=== PATIENT | female | born 1995 | race African-American/Black ===

== ENCOUNTER 2018-08-15 08:33 | Emergency (ER) | payer SELFPAY ==
[2018-08-15 09:22] LABS: Urine Blood NEGATIVE (NEG); Urine Glucose NEGATIVE (NEG); Urine Protein TRACE (NEG); Urine pH 6.5 (5.0-7.0)
[2018-08-15 09:28] LABS: Absolute Lymphocytes (CBC) 0.7 K/uL (0.7-4.9); Absolute Monocytes 0.5 K/uL (0.1-1.3); Basophils % 0.2 % (0-1.3); Eosinophils % 0.4 % (0-4.4); Hematocrit 37.5 % (36.0-45.0); Lymphocytes % 16.1 % (15.3-44.8); MCH 32.2 pg (27.0-35.0); MCV 93.6 fL (80-100); MPV 8.3 fL (7.6-11.3); Monocytes % 10.9 % (3.3-12.3); RBC Red Blood Cell Count 4.01 M/uL (3.86-4.86)
[2018-08-15] MEDS ORDERED: ONDANSETRON 4 MG/2 ML VIAL ONE (09:33)
[2018-08-15 09:43] LABS: ALT/SGPT 26 U/L (12-78); AST/SGOT 25 U/L (15-37); Albumin 3.3 g/dL (3.4-5.0); Alkaline Phosphatase 65 U/L (45-117); BUN Blood Urea Nitrogen 11 mg/dL (7-18); Bicarbonate 27 mmol/L (21-32); Bilirubin Direct 0.1 mg/dL (0-0.2); Bilirubin Total 0.3 mg/dL (0.2-1.0); Glucose Level 76 mg/dL (74-106); Lipase 56 U/L (73-393); Potassium 3.4 mmol/L (3.5-5.1); Protein, Total 7.2 g/dL (6.4-8.2); Sodium Level 138 mmol/L (136-145)
[2018-08-15 09:49] LABS: Urine Bacteria 20-50 /HPF (<20); Urine Culture Reflex Order REFLEXED; Urine Mucus MOD /HPF (NONE SEEN); Urine RBC <5 /HPF (NONE SEEN)
--- NOTE | 2018-08-15 12:11 | RAD REPORT ---
EXAM DESCRIPTION: CT - Abdomen Pelvis W Contrast - 08/15/2018 11:41 am CLINICAL HISTORY: Abdominal pain. Periumbilical pain COMPARISON: None. TECHNIQUE: Computed axial tomography of the abdomen and pelvis was obtained. 100 cc Isovue-300 is ad ministered intravenously. Oral contrast was given. All CT scans are performed using dose optimization technique as appropriate and may include automated exposure control or mA/KV adjustment according to patient size. FINDINGS: The liver, spleen, pancreas, adrenals and kidneys appear unremarkable. The appendix is normal caliber. There is no evidence of diverticulitis A 5 centimeter right ovarian cyst without significant free fluid IMPRESSION: A 5 centimeter right ovarian cystic mass may represent a hemorrhagic cyst. Significant f ree fluid is not noted. A followup ultrasound in a couple months is recommended to assess stability/r esolution
[2018-08-15] MEDS ORDERED: CEFTRIAXONE/SWI 1gm 1 GM/10 ML SYR ONE (12:49)
--- NOTE | 2018-08-15 14:18 | RAD REPORT ---
EXAM DESCRIPTION: US - Transvaginal Study Probe - 08/15/2018 1:56 pm CLINICAL HISTORY: Pelvic pain COMPARISON: August 15 CT FINDINGS: The uterus measures 7 x 3 x 4cm. A fibroid is not seen. Endometrial stripe within normal l imits 5 centimeter echogenic structure within the right adnexal. Blood flow is seen within the periphery. L eft ovary normal in size and texture. No significant free fluid is seen. IMPRESSION: 5 centimeter echogenic structure within the right adnexa consistent with a hemorrhagic c yst. Followup ultrasound in a couple months is recommended to assess stability/resolution
--- NOTE | 2018-08-15 14:21 | ER ---
Nurse's Notes [facility] Name: Radha Pool Age: 22 yrs Sex: Female : 1995 Arrival Date: 08/15/2018 Time: 08:37 Bed 14 Private MD: None, None Diagnosis: Unspecified ovarian cysts-Right;Urinary tract infection, site not specified Presentation: 08/15 08:44 Presenting complaint: Patient states: lower abd pain, chills and fever that began ss yesterday. Transition of care: patient was not received from another setting of care. Onset of symptoms was August 14, 2018. Risk Assessment: Do you want to hurt yourself or someone else? Patient reports no desire to harm self or others. Initial Sepsis Screen:. Care prior to arrival: None. 08:44 Method Of Arrival: Ambulatory ss 08:44 Acuity: GRIS 3 ss 08:45 Initial Sepsis Screen: Does the patient meet any 2 criteria? No. Patient's initial rb1 sepsis screen is negative. Does the patient have a suspected source of infection? No. Patient's initial sepsis screen is negative. 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 - Social history:: Smoking status: Patient/guardian denies using tobacco. - Ebola Screening: : Patient denies exposure to infectious person Patient denies travel to an Ebola-affected area in the 21 days before illness onset. Screenin:45 Abuse screen: Denies threats or abuse. Nutritional screening: pt. has trouble keeping rb1 anything down without vomiting.. Tuberculosis screening: No symptoms or risk factors identified. Fall Risk None identified. Assessment: 08:45 General: Appears in no apparent distress. comfortable, Behavior is calm, cooperative, rb1 Reports chills for fever for. Pain: Complains of pain in right lower quadrant and left lower quadrant Pain radiates to low back Pain currently is 8 out of 10 on a pain scale. Neuro: Level of Consciousness is awake, alert, obeys commands, Oriented to person, place, time, situation. Cardiovascular: Capillary refill < 3 seconds is brisk in bilateral fingers. Respiratory: Airway is patent Respiratory effort is even, unlabored, Respiratory pattern is regular, symmetrical. GI: Bowel sounds present X 4 quads. Abd is soft Abdomen is tender to palpation in right lower quadrant and left lower quadrant Reports nausea, vomiting. : No signs and/or symptoms were reported regarding the genitourinary system. Derm: Skin is dry, Skin is normal, Skin temperature is warm. 09:45 Reassessment: Patient appears in no apparent distress at this time. No changes from rb1 previously documented assessment. Friend at bedside. 10:45 Reassessment: Patient appears in no apparent distress at this time. Patient and/or rb1 family updated on plan of care and expected duration. Pain level reassessed. Patient is alert, oriented x 3, equal unlabored respirations, skin warm/dry/pink. 11:27 Reassessment: Pt. went to CT. rb1 11:50 Reassessment: Patient appears in no apparent distress at this time. Patient and/or rb1 family updated on plan of care and expected duration. Pain level reassessed. Patient is alert, oriented x 3, equal unlabored respirations, skin warm/dry/pink. 12:49 Reassessment: Patient appears in no apparent distress at this time. No changes from rb1 previously documented assessment. 13:48 Reassessment: Patient appears in no apparent distress at this time. Patient and/or rb1 family updated on plan of care and expected duration. Pain level reassessed. Patient is alert, oriented x 3, equal unlabored respirations, skin warm/dry/pink. 14:48 Reassessment: Patient appears in no apparent distress at this time. pt. is resting with rb1 eyes closed, respirations even, unlabored. Bed in low, locked position. Call light within reach. Vital Signs: 08:45 Resp 15; Weight 102.51 kg (M); Height 5 ft. 7 in. (170.18 cm); Pain 6/10; ss 09:45 BP 117 / 69; Pulse 95; Resp 17; Pulse Ox 100% on R/A; rb1 10:45 BP 118 / 72; Pulse 84; Resp 16; Pulse Ox 100% on R/A; rb1 11:45 BP 122 / 66; Pulse 80; Resp 17; Pulse Ox 100% on R/A; rb1 12:45 BP 123 / 82; Pulse 80; Resp 19; Pulse Ox 100% on R/A; rb1 13:45 BP 123 / 83; Pulse 79; Resp 18; Pulse Ox 99% on R/A; rb1 14:45 BP 120 / 85; Pulse 82; Resp 17; Temp 98.7(O); Pulse Ox 100% on R/A; Pain 3/10; rb1 15:20 BP 118 / 87; Pulse 79; Resp 16; Pulse Ox 99% on R/A; rb1 08:45 Body Mass Index 35.40 (102.51 kg, 170.18 cm) ED Course: 08:37 Patient arrived in ED. sb2 08:38 None, None is Private Physician. sb2 08:40 Rambo Jimenes PA is PHCP. cp 08:40 Boone Ervin MD is Attending Physician. cp 08:43 Sun Feng, MERVIN is Primary Nurse. rb1 08:45 Triage completed. ss 08:45 Arm band placed on right wrist. ss 08:45 Patient has correct armband on for positive identification. Placed in gown. Bed in low rb1 position. Call light in reach. Side rails up X 1. Pulse ox on. NIBP on. 09:10 Inserted saline lock: 22 gauge in right antecubital area, using aseptic technique. rb1 Blood collected. 11:42 CT completed. Patient moved to CT via wheelchair. Patient moved back from CT. bq 11:49 CT Abd/Pelvis - W/Contrast: give oral contrast In Process Unspecified. EDMS 13:54 Ultrasound completed. Patient tolerated well. sg3 13:54 US Transvaginal Study (Probe) In Process Unspecified. EDMS 14:19 Curt Acosta MD is Referral Physician. cp 15:24 No provider procedures requiring assistance completed. IV discontinued, intact, rb1 bleeding controlled, No redness/swelling at site. Pressure dressing applied. Administered Medications: 09:28 Drug: Zofran 4 mg Route: IVP; Site: right antecubital; rb1 09:42 Follow up: Response: No adverse reaction; Nausea is decreased rb1 12:47 Drug: Rocephin 1 grams Route: IV; Rate: bolus; Site: right antecubital; rb1 13:15 Follow up: Response: No adverse reaction; IV Status: Completed infusion rb1 Outcome: 14:20 Discharge ordered by . cp 15:24 Patient left the ED. rb1 15:24 Discharged to home ambulatory. rb1 15:24 Condition: stable 15:24 Discharge instructions given to patient, Instructed on discharge instructions, follow up and referral plans. medication usage, Demonstrated understanding of instructions, follow-up care, medications, Prescriptions given X 3. Signatures: Dispatcher [employer] EDMS Zahra Haas Shelby, RN RN ss Rambo Jimenes PA PA cp Barber, Rebecca, RN RN rb1 Sarah Cheek 3 Shruthi Hodge sb2
--- NOTE | 2018-08-15 14:21 | EDPHYS ---
Physician Documentation [facility] Name: Radha Pool Age: 22 yrs Sex: Female : 1995 Arrival Date: 08/15/2018 Time: 08:37 Bed 14 Private MD: None, None ED Physician Boone Ervin HPI: 08/15 08:58 This 22 yrs old Black Female presents to ER via Ambulatory with complaints of Abdominal cp Pain, Nausea/Vomiting, Headache. 08:58 The patient presents with abdominal pain in the lower abdomen. cp 08:58 Onset: The symptoms/episode began/occurred yesterday. Associated signs and symptoms: cp Pertinent positives: nausea and vomiting, fever, headache, Pertinent negatives: chest pain, constipation, diarrhea, dysuria, palpitations, shortness of breath, vomiting blood. The symptoms are described as sharp. 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 - Social history:: Smoking status: Patient/guardian denies using tobacco. - Ebola Screening: : Patient denies exposure to infectious person Patient denies travel to an Ebola-affected area in the 21 days before illness onset. ROS: 09:05 Constitutional: Positive for chills, Negative for fever, poor PO intake. cp 09:05 Eyes: Negative for injury, pain, redness, and discharge. cp 09:05 ENT: Negative for drainage from ear(s), ear pain, sore throat, difficulty swallowing, difficulty handling secretions. 09:05 Cardiovascular: Negative for chest pain, edema, palpitations. 09:05 Respiratory: Negative for cough, shortness of breath, wheezing. 09:05 Abdomen/GI: Positive for abdominal pain, nausea and vomiting, Negative for diarrhea, constipation, anorexia, black/tarry stool, rectal bleeding. 09:05 Back: Negative for radiated pain. 09:05 : Negative for urinary symptoms, difficulty urinating, vaginal bleeding, vaginal discharge. 09:05 Skin: Negative for cellulitis, rash. 09:05 Neuro: Positive for headache, Negative for altered mental status, syncope, weakness. 09:05 All other systems are negative. Exam: 09:12 Constitutional: The patient appears in no acute distress, alert, awake, non-toxic, well cp developed, well nourished. 09:12 Head/Face: Normocephalic, atraumatic. Eyes: Pupils equal round and reactive to light, cp extra-ocular motions intact. Lids and lashes normal. Conjunctiva and sclera are non-icteric and not injected. Cornea within normal limits. Periorbital areas with no swelling, redness, or edema. ENT: Nares patent. No nasal discharge, no septal abnormalities noted. Tympanic membranes are normal and external auditory canals are clear. Oropharynx with no redness, swelling, or masses, exudates, or evidence of obstruction, uvula midline. Mucous membranes moist. Neck: Trachea midline, no thyromegaly or masses palpated, and no cervical lymphadenopathy. Supple, full range of motion without nuchal rigidity, or vertebral point tenderness. No Meningismus. Chest/axilla: Normal chest wall appearance and motion. Nontender with no deformity. No lesions are appreciated. 09:12 Cardiovascular: Rate: normal, Rhythm: regular, Edema: is not appreciated, JVD: is not appreciated. 09:12 Respiratory: the patient does not display signs of respiratory distress, Respirations: normal, no use of accessory muscles, no retractions, no splinting, no tachypnea, labored breathing, is not present, Breath sounds: are clear throughout, no decreased breath sounds, no stridor, no wheezing. 09:12 Abdomen/GI: Inspection: abdomen appears normal, Bowel sounds: active, all quadrants, Palpation: soft, in all quadrants, mild abdominal tenderness, in the right lower quadrant, rebound tenderness, is not appreciated, involuntary guarding, is not appreciated. 09:12 Back: CVA tenderness, is absent. 09:12 Skin: cellulitis, is not appreciated, no rash present. 09:12 Neuro: Orientation: to person, place \T\ time. Mentation: is normal, Cerebellar function: is grossly normal, Motor: is normal, Sensation: is normal. Vital Signs: 08:45 Resp 15; Weight 102.51 kg (M); Height 5 ft. 7 in. (170.18 cm); Pain 6/10; ss 09:45 BP 117 / 69; Pulse 95; Resp 17; Pulse Ox 100% on R/A; rb1 10:45 BP 118 / 72; Pulse 84; Resp 16; Pulse Ox 100% on R/A; rb1 11:45 BP 122 / 66; Pulse 80; Resp 17; Pulse Ox 100% on R/A; rb1 12:45 BP 123 / 82; Pulse 80; Resp 19; Pulse Ox 100% on R/A; rb1 13:45 BP 123 / 83; Pulse 79; Resp 18; Pulse Ox 99% on R/A; rb1 14:45 BP 120 / 85; Pulse 82; Resp 17; Temp 98.7(O); Pulse Ox 100% on R/A; Pain 3/10; rb1 15:20 BP 118 / 87; Pulse 79; Resp 16; Pulse Ox 99% on R/A; rb1 08:45 Body Mass Index 35.40 (102.51 kg, 170.18 cm) ss MDM: 08:40 Patient medically screened. 14:20 Data reviewed: vital signs, nurses notes, lab test result(s), radiologic studies, CT cp scan, ultrasound. 14:20 Counseling: I had a detailed discussion with the patient and/or guardian regarding: the cp historical points, exam findings, and any diagnostic results supporting the discharge/admit diagnosis, lab results, radiology results, the need for outpatient follow up, an OB/Gyne specialist, to return to the emergency department if symptoms worsen or persist or if there are any questions or concerns that arise at home. Response to treatment: the patient's symptoms have markedly improved after treatment, and as a result, I will discharge patient. Special discussion: Based on the patient's Hx, exam, and Dx evaluation, there is no indication for emergent surgery or inpatient Tx. It is understood by the patient/guardian that if the Sx's persist or worsen they need to return immediately for re-evaluation. 08/15 08:57 Order name: Basic Metabolic Panel; Complete Time: 10:00 cp 08/15 10:00 Interpretation: Normal except: K 3.4; CL 108; CA 8.2. 08/15 08:57 Order name: CBC with Diff; Complete Time: 10:00 cp 08/15 10:00 Interpretation: Normal except: WBC 4.1. 08/15 08:57 Order name: Creatinine for Radiology; Complete Time: 10:00 08/15 08:57 Order name: Hepatic Function; Complete Time: 10:00 08/15 10:01 Interpretation: Normal except: ALB 3.3; GLOB 3.9; A/G 0.8. 08/15 08:57 Order name: Lipase; Complete Time: 10:00 cp 08/15 08:57 Order name: Influenza Screen (a \T\ B); Complete Time: 12:15 cp 08/15 12:15 Interpretation: Reviewed. 08/15 09:03 Order name: Urine Microscopic Only; Complete Time: 10:00 08/15 10:01 Interpretation: Normal except: UWBC 20-50; UBACT 20-50; SQEPI 10-20. 08/15 09:11 Order name: Urine Dipstick--Ancillary (enter results); Complete Time: 10:00 lt1 08/15 09:12 Order name: Urine --Ancillary (enter results) lt 08/15 09:16 Order name: CT Abd/Pelvis - W/Contrast: give oral contrast; Complete Time: 12:15 08/15 12:15 Interpretation: Report reviewed. 08/15 09:50 Order name: Urine Culture EDVA 08/15 12:16 Order name: US Transvaginal Study (Probe); Complete Time: 14:19 cp 08/15 08:57 Order name: IV Saline Lock; Complete Time: 09:28 cp 08/15 08:57 Order name: Labs collected and sent; Complete Time: 09:28 cp 08/15 08:57 Order name: Urine Dipstick-Ancillary (obtain specimen); Complete Time: 09:28 cp 08/15 08:57 Order name: Urine Test (obtain specimen); Complete Time: 09:28 cp Administered Medications: 09:28 Drug: Zofran 4 mg Route: IVP; Site: right antecubital; rb1 09:42 Follow up: Response: No adverse reaction; Nausea is decreased rb1 12:47 Drug: Rocephin 1 grams Route: IV; Rate: bolus; Site: right antecubital; rb1 13:15 Follow up: Response: No adverse reaction; IV Status: Completed infusion rb1 Disposition: 08/16 07:45 Co-signature as Attending Physician, Boone Ervin MD. Disposition: 08/15/18 14:20 Discharged to Home. Impression: Unspecified ovarian cysts - Right, Urinary tract infection, site not specified. - Condition is Stable. - Discharge Instructions: Ovarian Cyst, Urinary Tract Infection, Adult. - Prescriptions for Zofran 4 mg Oral Tablet - take 1 tablet by ORAL route every 12 hours As needed; 20 tablet. Bactrim DS 800- 160 mg Oral Tablet - take 1 tablet by ORAL route every 12 hours for 7 days; 14 tablet. Anaprox DS 550 mg Oral Tablet - take 1 tablet by ORAL route every 12 hours As needed; 20 tablet. - Medication Reconciliation Form, Thank You Letter, Antibiotic Education, Prescription Opioid Use, Work release form form. - Follow up: Curt Acosta MD; When: 1 week; Reason: right ovarian cyst. - Problem is new. - Symptoms have improved. Signatures: Dispatcher [employer] EDMS Mariajose Koroma RN RN ss Rambo Jimenes PA PA Sun Limon RN RN rb1 Boone Ervin MD MD gs Corrections: (The following items were deleted from the chart) 08/15 10:00 10:00 Normal except: K 3.4; CL 108. cp cp 15:24 14:20 08/15/2018 14:20 Discharged to Home. Impression: Unspecified ovarian cysts - rb1 Right; Urinary tract infection, site not specified. Condition is Stable. Forms are Medication Reconciliation Form, Thank You Letter, Antibiotic Education, Prescription Opioid Use. Follow up: Curt Acosta; When: 1 week; Reason: right ovarian cyst. Problem is new. Symptoms have improved. cp
== END 2018-08-15 15:24 | disposition home or self-care (01) ==
LOC: ER 08:33
DX: N83.201 Unspecified ovarian cyst, right side (principal); N39.0 Urinary tract infection, site not specified
CPT/HCPCS: 36415; 74177; 76830; 80048; 80076; 81003; 81015; 81025; 83690; 85025; 87086; 87088; 87804; 96365; 96375; 99284; J0696; J2405; Q9967

== ENCOUNTER 2021-02-05 16:19 | Emergency (ER) | payer SELFPAY ==
[2021-02-05 17:16] LABS: Urine Blood Negative (Negative); Urine Glucose Negative (Negative); Urine Protein Trace (Negative); Urine Specific Gravity 1.025 (1.005-1.030); Urine pH 6.5 (5.0-7.0)
[2021-02-05 17:39] LABS: Urine Specific Gravity/Preg 1.025 (1.005-1.030)
--- NOTE | 2021-02-05 18:51 | RAD REPORT ---
EXAM DESCRIPTION: US - Transvaginal OB - 02/05/2021 6:16 pm CLINICAL HISTORY: Abd cramping, ;Vaginal bleeding COMPARISON: Extremity [facility]ous [facility] dated 11/24/2016No comparisons FINDINGS: A single small gestational sac is seen within the uterus. The shape of the sac is within n ormal limits for gestational age and yields a 5 week 2 day estimated gestational age. No embryo detec marco antonio within the sac. The placenta is not yet developed due to early gestational age. The right ovary appears normal with normal Doppler blood flow. The left ovary is obscured by bowel ga s. Both adnexal regions are within normal limits. IMPRESSION: Small gestational sac is seen within the endometrium. This is most compatible with an ea rly IUP. No embryo is yet detected. Recommend follow-up serial HCG levels and follow-up pelvic sonogram in 10-12 days.
[2021-02-05 18:58] LABS: Absolute Lymphocytes (CBC) 1.8 K/uL (0.7-4.9); Basophils % 0.8 % (0-1.3); Hematocrit 33.9 % (36.0-45.0); Lymphocytes % 26.3 % (15.3-44.8); MPV 8.3 fL (7.6-11.3); RBC Red Blood Cell Count 3.67 M/uL (3.86-4.86)
[2021-02-05 19:02] LABS: BUN Blood Urea Nitrogen 12 mg/dL (7-18); Bicarbonate 24 mmol/L (21-32); Glucose Level 81 mg/dL (74-106); Potassium 3.6 mmol/L (3.5-5.1); Sodium Level 137 mmol/L (136-145)
--- NOTE | 2021-02-05 19:31 | ER ---
Nurse's Notes [facility] Name: Radha Pool Age: 25 yrs Sex: Female : 1995 Arrival Date: 02/05/2021 Time: 16:20 Bed 26 Private MD: Diagnosis: Threatened Presentation: 02/05 16:57 Chief complaint: Patient states: "I had a test that tested positive jd3 yesterday. I started bleeding today that was heavy and now it has decreased here this afternoon. pain has got worse though.". Coronavirus screen: At this time, the client does not indicate any symptoms associated with coronavirus-19. Ebola Screen: Patient negative for fever greater than or equal to 101.5 degrees Fahrenheit, and additional compatible Ebola Virus Disease symptoms. Initial Sepsis Screen: Does the patient meet any 2 criteria? No. Patient's initial sepsis screen is negative. Does the patient have a suspected source of infection? No. Patient's initial sepsis screen is negative. Risk Assessment: Do you want to hurt yourself or someone else? Patient reports no desire to harm self or others. Onset of symptoms was February 04, 2021. 16:57 Method Of Arrival: Ambulatory j 16:57 Acuity: GRIS 3 jd3 Triage Assessment: 19:02 General: Appears in no apparent distress. Behavior is calm, cooperative. Pain: Denies ak2 pain. GI: No deficits noted. 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 - Social history:: Smoking status: Patient denies any tobacco usage or history of. Screenin:02 Abuse screen: Denies threats or abuse. Denies injuries from another. Nutritional ak2 screening: No deficits noted. Tuberculosis screening: No symptoms or risk factors identified. Fall Risk None identified. Vital Signs: 17:00 BP 138 / 80; Pulse 97; Resp 16 S; Temp 97.8(TE); Pulse Ox 99% on R/A; Weight 104.33 kg jd3 (R); Height 5 ft. 7 in. (170.18 cm) (R); Pain 8/10; 19:54 BP 126 / 75; Pulse 75; Resp 16; Pulse Ox 98% on R/A; ak2 17:00 Body Mass Index 36.02 (104.33 kg, 170.18 cm) j ED Course: 16:20 Patient arrived in ED. am2 16:40 [facility] kb 16:40 Wyatt Oneil MD is Attending Physician. kb 16:59 Triage completed. jd3 17:02 Arm band placed on. jd3 18:16 US Transvaginal Ob In Process Unspecified. EDMS 19:02 Patient has correct armband on for positive identification. Bed in low position. Call ak2 light in reach. 19:02 No provider procedures requiring assistance completed. ak2 19:03 Ricardo Rubio is Primary Nurse. ak2 Administered Medications: No medications were administered Outcome: 19:30 Discharge ordered by MD. kb 19:54 Discharged to home ambulatory. ak2 19:54 Condition: good 19:54 Discharge instructions given to patient. 19:55 Patient left the ED. ak2 Signatures: Dispatcher [employer] EDME Nurys Aj FNP-C FNP-Ckb Moreno, Amanda am2 Yoel Llanos RN RN Ricardo Wilcox ak2
--- NOTE | 2021-02-05 19:32 | EDPHYS ---
Physician Documentation [facility] Name: Radha Pool Age: 25 yrs Sex: Female : 1995 Arrival Date: 02/05/2021 Time: 16:20 Bed 26 Private MD: ED Physician Wyatt Oneil HPI: 02/05 19:53 This 25 yrs old Black Female presents to ER via Ambulatory with complaints of Abdominal kb Pain - low, Low Back Pain. 19:53 The patient presents to the emergency department with abdominal pain, of the left lower kb quadrant, that started yesterday, described as constant. course: care: none, Leakage of Fluid: none appreciated, Ultrasound: the patient has not had an ultrasound, Risk/complications: no obvious risks or complications are appreciated. Previous pregnancies: the patient has never been . Associated signs and symptoms: Pertinent positives: abdominal pain, vaginal bleeding. The patient has not experienced similar symptoms in the past. The patient has not recently seen a physician. Pt reports LLQ pain that started yesterday. States she had some bleeding yesterday, resolved today. Had a positive test yesterday. . [employer]: 17:00 LMP 12/31/2020 jd3 19:53 1, 0, Living 0, LMP 12/31/2020 kb Historical: - Allergies: 17:00 amoxicillin; jd3 - Home Meds: 17:00 None [Active]; jd3 - PMHx: 17:00 Asthma; Migraines; jd3 - PSHx: 17:00 None; jd3 - Immunization history:: Adult Immunizations up to date. - Social history:: Smoking status: Patient denies any tobacco usage or history of. ROS: 19:52 Constitutional: Negative for fever, chills, and weight loss. kb 19:52 Abdomen/GI: Positive for abdominal pain, Negative for nausea, vomiting, and diarrhea. 19:52 : Positive for vaginal bleeding. 19:52 All other systems are negative. Exam: 19:52 Constitutional: This is a well developed, well nourished patient who is awake, alert, kb and in no acute distress. Head/Face: Normocephalic, atraumatic. ENT: Moist Mucous membranes Cardiovascular: Regular rate and rhythm with a normal S1 and S2. No gallops, murmurs, or rubs. No pulse deficits. Respiratory: Respirations even and unlabored. No increased work of breathing, no retractions or nasal flaring. Skin: Warm, dry with normal turgor. Normal color. MS/ Extremity: Pulses equal, no cyanosis. Neurovascular intact. Full, normal range of motion. Neuro: Awake and alert, GCS 15, oriented to person, place, time, and situation. Moves all extremities. Normal gait. Psych: Awake, alert, with orientation to person, place and time. Behavior, mood, and affect are within normal limits. 19:52 Abdomen/GI: Inspection: abdomen appears normal, Bowel sounds: normal, Palpation: soft, in all quadrants, moderate abdominal tenderness, in the left lower quadrant. Vital Signs: 17:00 BP 138 / 80; Pulse 97; Resp 16 S; Temp 97.8(TE); Pulse Ox 99% on R/A; Weight 104.33 kg jd3 (R); Height 5 ft. 7 in. (170.18 cm) (R); Pain 8/10; 19:54 BP 126 / 75; Pulse 75; Resp 16; Pulse Ox 98% on R/A; ak2 17:00 Body Mass Index 36.02 (104.33 kg, 170.18 cm) jd3 MDM: 17:10 Patient medically screened. kb 19:51 Data reviewed: vital signs, nurses notes. Data interpreted: Pulse oximetry: on room air kb is 99 %. Interpretation: normal. Counseling: I had a detailed discussion with the patient and/or guardian regarding: the historical points, exam findings, and any diagnostic results supporting the discharge/admit diagnosis, lab results, radiology results, the need for outpatient follow up, an OB/Gyne specialist, to return to the emergency department if symptoms worsen or persist or if there are any questions or concerns that arise at home. 02/05 17:16 Order name: Urine Dipstick-Ancillary; Complete Time: 17:23 EDMS 02/05 17:25 Order name: Urine --Ancillary (enter results); Complete Time: 17:43 bd 02/05 18:23 Order name: Abo/rh Typing kb 02/05 18:23 Order name: Basic Metabolic Panel 02/05 18:23 Order name: CBC with Diff 02/05 18:24 Order name: ABO/RH typing; Complete Time: 19:29 EDMS 02/05 17:10 Order name: Urine Test (obtain specimen) 02/05 17:10 Order name: Urine Dipstick-Ancillary (obtain specimen) 02/05 17:15 Order name: US Transvaginal Ob; Complete Time: 18:53 02/05 18:23 Order name: IV Saline Lock 02/05 18:23 Order name: Labs collected and sent 02/05 18:24 Order name: Basic Metabolic Panel; Complete Time: 19:29 [facility] 02/05 18:24 Order name: CBC with Automated Diff; Complete Time: 19:29 [facility] 02/05 19:30 Order name: HCG-Quantitative 02/05 18:23 Order name: NPO Administered Medications: No medications were administered Disposition: 02/06 07:05 Co-signature as Attending Physician, Wyatt Oneil MD. rn Disposition: 02/05/21 19:30 Discharged to Home. Impression: Threatened . - Condition is Stable. - Discharge Instructions: Threatened Miscarriage, [id number], Vaginal Bleeding During , First Trimester, [id number]. - Medication Reconciliation Form, Thank You Letter, Antibiotic Education, Prescription Opioid Use form. - Follow up: Emergency Department; When: As needed; Reason: Worsening of condition. Follow up: Private Physician; When: 2 - 3 days; Reason: Recheck today's complaints, Continuance of care, Re-evaluation by your physician. Signatures: Dispatcher [employer] [facility] Nurys Aj, MANAGER TECHNICAL TRAINING-C MANAGER TECHNICAL TRAINING-Ckb Wyatt Oneil MD MD rn Davies, Jonathon, RN RN jd3 [place]ol[place], Anthony ak2 Corrections: (The following items were deleted from the chart) 02/05 19:55 19:30 02/05/2021 19:30 Discharged to Home. Impression: Threatened . Condition ak2 is Stable. Forms are Medication Reconciliation Form, Thank You Letter, Antibiotic Education, Prescription Opioid Use. Follow up: Emergency Department; When: As needed; Reason: Worsening of condition. Follow up: Private Physician; When: 2 - 3 days; Reason: Recheck today's complaints, Continuance of care, Re-evaluation by your physician. kb
[2021-02-05 20:16] VITALS: TEMP 97.8
[2021-02-05 20:17] VITALS: BP 126/75; O2SAT 98
== END 2021-02-05 19:55 | disposition home or self-care (01) ==
LOC: ER 16:19
DX: O20.0 Threatened abortion (principal); O99.511 Diseases of the respiratory system complicating pregnancy, first trimester; J45.909 Unspecified asthma, uncomplicated; Z3A.01 Less than 8 weeks gestation of pregnancy
CPT/HCPCS: 36415; 76817; 80048; 81003; 81025; 84702; 85025; 86900; 86901; 99283

== ENCOUNTER 2022-08-28 10:14 | Emergency (ER) | payer OTHER, SELFPAY ==
--- OUTSIDE RECORDS SUMMARY | 2022-08-28 10:19 | XMS REPORT | Continuity of Care Document ---
:1995 Author Organization [facility] t Address [address] [place] [address] Care Team Providers Name Role Phone Asked, No Pcp Primary Care Physician Unavailable DEIRDRE MOHAMUD Attending Clinician Unavailable UGHANZE, COMFORT Attending Clinician Unavailable UGHANZE, COMFORT NNEZE Attending Clinician Unavailable [place] JEFFRIES, Pedro Attending Clinician Unavailable [place], External Attending Clinician Unavailable Payers Payer Name Policy Type Policy Number Effective Date Expiration Date [facility] MEDICAID STAR [id number] 2021 00:00:00 Problems Condition Condition Condition Status Onset Resolution Last Treating Co mments Source Name Details Category Date Date Treatment Clinician Date ABCC8-rela ABCC8-rela Disease Active [facility] marco antonio bernard 03-08 Health 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, ia, autosomal autosomal recessive recessive Allergies, Adverse Reactions, Alerts Allergy Allergy Status Severity Reaction(s) Onset Inactive Treating Comm ents Source Name Type Date Date Clinician Amoxicil Propensi Active Itching [facility] efren ty to 03-02 [facility] adverse 00:00: reaction 00 s Social History Social Habit Start Date Stop Date Quantity Comments Source ASSERTION 2021-01-14 [facility] 00:00:00 Exposure to Not sure [facility] SARS-CoV-2 (event) History SDOH [facility] Drinks History SDOH [facility] Tobacco use and 2021-03-02 2021-03-02 Smokeless tobacco [facility] exposure 00:00:00 00:00:00 non-user Alcohol intake 2019-01-09 2019-01-09 Current [facility] 00:00:00 00:00:00 non-drinker of Hospital alcohol (finding) History [facility] 2019-01-09 2019-01-09 1 [facility] Frequency 00:00:00 00:00:00 Hospita l Sex Assigned At [birth year] [facility] 00:[facility]:00 [facility] Smoking Status Start Date Stop Date Source Never smoker [facility] Medications Ordered Filled Start Stop Current Ordering Indication Dosage Frequency Signature Comments Components Source Medication Medication Date Date Medication? Clinician (SIG) Name Name ferrous 2020-09- No [id number] 325mg QD Take 1 U T sulfate 0-29 10-30 tablet Health (FerrouSul) 00:00: 04:59 (325 mg 325 (65 Fe) 00 :00 total) by MG tablet mouth 1 (one) time each day with breakfast. ferrous 2020-09 No [id number] 325mg QD Take 1 U T sulfate 0-29 10-30 tablet Health (FerrouSul) 00:00: 04:59 (325 mg 325 (65 Fe) 00 :00 total) by MG tablet mouth 1 (one) time each day with breakfast. butalbital- 2020-09 Yes [facility] acetaminoph 0-14 Health en-caffeine 00:00: (Fioricet) 00 50-300-40 MG capsule butalbital2020-09 Yes [facility] acetaminoph 0-14 Health en-caffeine 00:00: (Fioricet) 00 50-300-40 MG capsule butalbital- 2020-09 Yes [facility] acetaminoph 0-14 Health en-caffeine 00:00: (Fioricet) 00 50-300-40 MG capsule nitrofurant 2020- No [id number] 100mg Q.5D Take 1 UT oin, 9 10-08 capsule Health macrocrysta 00:00: 04:59 (100 mg l-monohydra 00 :00 total) by te, mouth 2 (Macrobid) (two) 100 MG times a capsule day for 7 days. nitrofurant 2020- No [id number] 100mg Q.5D Take 1 [facility] oin, -06-08 capsule Health macrocrysta 00:00: 04:59 (100 mg l-monohydra 00 :00 total) by te, mouth 2 (Macrobid) (two) 100 MG times a capsule day for 7 days. ondansetron 2020- No [id number] 4mg Take 1 UT (Zofran) 4 05-03 tablet (4 Hea lth MG tablet 00:00: 04:59 mg total) 00 :00 by mouth every 8 (eight) hours if needed for nausea or vomiting for up to 13 days. ondansetron 2020- No [id number] 4mg Take 1 UT (Zofran) 4 05-03 tablet (4 Hea lth MG tablet 00:00: 04:59 mg total) 00 :00 by mouth every 8 (eight) hours if needed for nausea or vomiting for up to 13 days. Doxylamine- Yes [id number] Take 2 [facility] Pyridoxine 7-02 tabs at Health 10-10 MG 00:00: night, one tablet 00 in the delayed-rel morning ease and one in the afternoon as needed for nausea Doxylamine- Yes [id number] Take 2 [facility] Pyridoxine 7-02 tabs at Health 10-10 MG 00:00: night, one tablet 00 in the delayed-rel morning ease and one in the afternoon as needed for nausea 2021- No [id number] 1{tbl} QD Take 1 UT Vit-FePoly- 7-03-03 tablet by Ted alth FA-DHA 00:00: 04:59 mouth 1 (Select-OB+ 00 :00 (one) time DHA) 29-1 & each day. 250 MG misc 2021- No [id number] 1{tbl} QD Take 1 [facility] Vit-FePoly- 7-02 03-03 tablet by Ted alth FA-DHA 00:00: 04:59 mouth 1 (Select-OB+ 00 :00 (one) time DHA) 29-1 & each day. 250 MG misc 2021- No [id number] 1{tbl} QD Take 1 UT Vit-FePoly- 7-02 07-03 tablet by He alth FA-DHA 00:00: 04:59 mouth 1 (Select-OB+ 00 :00 (one) time DHA) 29-1 & each day. 250 MG misc 2021- No [id number] 1{tbl} QD Take 1 UT Vit-FePoly- 7-02 07-03 tablet by He alth FA-DHA 00:00: 04:59 mouth 1 (Select-OB+ 00 :00 (one) time DHA) 29-1 & each day. 250 MG misc 2021- No [id number] 1{tbl} QD Take 1 UT Vit-FePoly- 7-02 07-03 tablet by He alth FA-DHA 00:00: 04:59 mouth 1 (Select-OB+ 00 :00 (one) time DHA) 29-1 & each day. 250 MG misc 2021- No [id number] 1{tbl} QD Take 1 UT Vit-FePoly- 7-02 07-03 tablet by He alth FA-DHA 00:00: 04:59 mouth 1 (Select-OB+ 00 :00 (one) time DHA) 29-1 & each day. 250 MG misc 2021- No [id number] 1{tbl} QD Take 1 UT Vit-FePoly- 7-02 07-03 tablet by He alth FA-DHA 00:00: 04:59 mouth 1 (Select-OB+ 00 :00 (one) time DHA) 29-1 & each day. 250 MG misc 2021- No [id number] 1{tbl} QD Take 1 UT Vit-FePoly- 7-02 07-03 tablet by He alth FA-DHA 00:00: 04:59 mouth 1 (Select-OB+ 00 :00 (one) time DHA) 29-1 & each day. 250 MG misc 2021- No [id number] 1{tbl} QD Take 1 UT Vit-FePoly- 7-02 07-03 tablet by He alth FA-DHA 00:00: 04:59 mouth 1 (Select-OB+ 00 :00 (one) time DHA) 29-1 & each day. 250 MG misc 2021- No [id number] 1{tbl} QD Take 1 UT Vit-FePoly- 7- 07-03 tablet by He alth FA-DHA 00:00: 04:59 mouth 1 (Select-OB+ 00 :00 (one) time DHA) 29-1 & each day. 250 MG misc 2021- No [id number] 1{tbl} QD Take 1 UT Vit-FePoly- 7- 07-03 tablet by He alth FA-DHA 00:00: 04:59 mouth 1 (Select-OB+ 00 :00 (one) time DHA) 29-1 & each day. 250 MG misc 2021- No [id number] 1{tbl} QD Take 1 UT Vit-FePoly- 7-02 07-03 tablet by He alth FA-DHA 00:00: 04:59 mouth 1 (Select-OB+ 00 :00 (one) time DHA) 29-1 & each day. 250 MG misc 2021- No [id number] 1{tbl} QD Take 1 UT Vit-FePoly- 7-02 07-03 tablet by He alth FA-DHA 00:00: 04:59 mouth 1 (Select-OB+ 00 :00 (one) time DHA) 29-1 & each day. 250 MG misc Doxylamine- 2020- No [id number] Take 2 [facility] Pyridoxine 03-02 08-05 tabs at [facility]alt [facility] 10-10 MG 00:00: 00:00 night, one tablet 00 :00 in the delayed-rel morning ease and one in the afternoon as needed for nausea No known No No known Metho di medications 5-[address] 01[facility]: [facility] l No known No [facility] Immunizations Ordered Immunization Filled Immunization Date Status Commen ts Source Name Name Tdap 2021-07-17 [facility] 00:00:00 Tdap 2021-07-17 [facility] 00:00:00 Tdap 2014-03-18 [facility]pleted [facility] 00:00:00 Tdap 2014-03-18 [facility]pleted [facility] 00:00:00 Tdap 2014-03-18 [facility]pleted [facility] 00:00:00 Tdap 2014-03-18 [facility]pleted [facility] 00:00:00 Tdap 2014-03-18 Completed [facility] 00:00:00 Tdap 2014-03-18 Completed [facility] 00:00:00 Tdap 2014-03-18 [facility]pleted [facility] 00:00:00 Tdap 2014-03-18 Completed [facility] 00:00:00 Tdap 2014-03-18 [facility]pleted [facility] 00:00:00 Tdap 2014-03-18 [facility]pleted [facility] 00:00:00 Tdap 2014-03-18 [facility]pleted [facility] 00:00:00 Tdap 2014-03-18 [facility]pleted [facility] 00:00:00 Tdap 2014-03-18 [facility]pleted [facility] 00:00:00 Hep B, Adolescent or 1998-03-21 [facility] 00:[facility]:00 MMR 1998-03-21 [facility]pleted [facility] 00:00:00 OPV 1998-03-21 [facility]pleted [facility] 00:00:00 DTaP, Unspecified 1998-03-21 [facility]pleted [facility] 00:[facility] Hep B, Adolescent or 1998-03-21 [facility] 00:00:00 MMR 1998-03-21 [facility]pleted [facility] 00:00:00 OPV 1998-03-21 [facility] 00:00:00 DTaP, Unspecified 1998-03-21 [facility]pleted [facility] 00:[facility]:00 Hep B, Adolescent or 1998-03-21 [facility] 00:00:00 MMR 1998-03-21 [facility]pleted [facility] 00:00:00 OPV 1998-03-21 [facility] 00:00:00 DTaP, Unspecified 1998-03-21 [facility]pleted [facility] 00:00:00 Hep B, Adolescent or 1998-03-21 [facility]pleted [facility] 00:00:00 MMR 1998-03-21 [facility] 00:00:00 OPV 1998-03-21 [facility] 00:00:00 DTaP, Unspecified 1998-03-21 [facility]pleted [facility] 00:00:00 Hep B, Adolescent or 1998-03-21 [facility] 00:00:00 MMR 1998-03-21 [facility] 00:00:00 OPV 1998-03-21 [facility] 00:00:00 DTaP, Unspecified 1998-03-21 [facility]pleted [facility] 00:00:00 Hep B, Adolescent or 1998-03-21 [facility] 00:00:00 MMR 1998-03-21 [facility] 00:00:00 OPV 1998-03-21 [facility] 00:00:00 DTaP, Unspecified 1998-03-21 [facility]pleted [facility] 00:00:00 Hep B, Adolescent or 1998-03-21 [facility] 00:00:00 MMR 1998-03-21 [facility] 00:00:00 OPV 1998-03-21 [facility] 00:00:00 DTaP, Unspecified 1998-03-21 [facility] 00:00:00 DTaP, Unspecified 1998-03-21 [facility] 00:[facility]:00 Hep B, Adolescent or 1998-03-21 [facility] 00:00:00 MMR 1998-03-21 [facility] 00:00:00 OPV 1998-03-21 [facility] 00:00:00 DTaP, Unspecified 1998-03-21 [facility]pleted [facility] 00:00:00 Hep B, Adolescent or 1998-03-21 [facility] 00:00:00 MMR 1998-03-21 [facility] 00:00:00 Hep B, Adolescent or 1998-03-21 [facility] 00:00:00 OPV 1998-03-21 [facility] 00:00:00 MMR 1998-03-21 [facility]pleted [facility] 00:00:00 OPV 1998-03-21 [facility]pleted [facility] 00:00:00 DTaP, Unspecified 1998-03-21 [facility] 00:00:00 Hep B, Adolescent or 1998-03-21 [facility] 00:00:00 MMR 1998-03-21 [facility] 00:00:00 OPV 1998-03-21 [facility] 00:00:00 DTaP, Unspecified 1998-03-21 [facility] 00:00:00 Hep B, Adolescent or 1998-03-21 [facility] 00:00:00 MMR 1998-03-21 [facility] 00:00:00 OPV 1998-03-21 [facility] 00:00:00 DTaP, Unspecified 1998-03-21 [facility] 00:00:00 DTaP, Unspecified 1998-03-21 [facility] 00:00:00 Hep B, Adolescent or 1998-03-21 [facility] 00:00:00 MMR 1998-03-21 [facility] 00:00:00 OPV 1998-03-21 [facility] 00:00:00 Hep B, Adolescent or 1996-11-30 [facility] 00:00:00 OPV 1996-11-30 [facility] 00:00:00 DTP / HiB 1996-11-30 [facility]pleted [facility] 00:00:00 Hep B, Adolescent or 1996-11-30 [facility] 00:00:00 OPV 1996-11-30 [facility] 00:00:00 DTP / HiB 1996-11-30 [facility]pleted [facility] 00:00:00 Hep B, Adolescent or 1996-11-30 [facility] 00:00:00 OPV 1996-11-30 [facility]pleted [facility] 00:00:00 DTP / HiB 1996-11-30 [facility]pleted [facility] 00:00:00 Hep B, Adolescent or 1996-11-30 [facility] 00:00:00 OPV 1996-11-30 [facility] 00:00:00 DTP / HiB 1996-11-30 [facility]pleted [facility] 00:00:00 Hep B, Adolescent or 1996-11-30 [facility] 00:00:00 OPV 1996-11-30 [facility] 00:00:00 DTP / HiB 1996-11-30 [facility]pleted [facility] 00:00:00 Hep B, Adolescent or 1996-11-30 [facility] 00:00:00 OPV 1996-11-30 [facility] 00:00:00 DTP / HiB 1996-11-30 [facility]pleted [facility] 00:00:00 Hep B, Adolescent or 1996-11-30 [facility] 00:00:00 OPV 1996-11-30 [facility] 00:00:00 DTP / HiB 1996-11-30 [facility]pleted [facility] 00:00:00 Hep B, Adolescent or 1996-11-30 [facility] 00:00:00 OPV 1996-11-30 [facility] 00[facility]00:00 DTP / HiB 1996-11-30 [facility]pleted [facility] 00:00:00 DTP / HiB 1996-11-30 [facility]pleted [facility] 00:00:00 Hep B, Adolescent or 1996-11-30 [facility] 00:00:00 OPV 1996-11-30 [facility] 00:00:00 Hep B, Adolescent or 1996-11-30 [facility] 00:00:00 OPV 1996-11-30 [facility] 00:00:00 DTP / HiB 1996-11-30 [facility]pleted [facility] 00:00:00 Hep B, Adolescent or 1996-11-30 [facility] 00:00:00 OPV 1996-11-30 [facility] 00:00:00 DTP / HiB 1996-11-30 [facility]pleted [facility] 00:00:00 Hep B, Adolescent or 1996-11-30 [facility] 00:00:00 OPV 1996-11-30 [facility] 00:00:00 DTP / HiB 1996-11-30 [facility]pleted [facility] 00:00:00 DTP / HiB 1996-11-30 [facility]pleted [facility] 00:00:00 Hep B, Adolescent or 1996-11-30 [facility] 00:00:00 OPV 1996-11-30 [facility] 00:00:00 DTP / HiB 1995-07-03 [facility]pleted [facility] 00:00:00 Hep B, Adolescent or 1995-07-03 [facility] 00:00:00 OPV 1995-07-03 [facility] 00:00:00 DTP / HiB 1995-07-03 [facility]pleted [facility] 00:00:00 Hep B, Adolescent or 1995-07-03 [facility] 00:00:00 OPV 1995-07-03 [facility] 00:00:00 DTP / HiB 1995-07-03 [facility]pleted [facility] 00:00:00 Hep B, Adolescent or 1995-07-03 [facility] 00:00:00 OPV 1995-07-03 [facility] 00:00:00 DTP / HiB 1995-07-03 [facility]pleted [facility] 00:00:00 Hep B, Adolescent or 1995-07-03 [facility] 00:00:00 OPV 1995-07-03 [facility] 00:00:00 DTP / HiB 1995-07-03 [facility]pleted [facility] 00:00:00 Hep B, Adolescent or 1995-07-03 [facility] 00:00:00 OPV 1995-07-03 [facility] 00:00:00 DTP / HiB 1995-07-03 [facility]pleted [facility] 00:00:00 Hep B, Adolescent or 1995-07-03 [facility] 00:00:00 OPV 1995-07-03 [facility] 00:00:00 DTP / HiB 1995-07-03 [facility]pleted [facility] 00:00:00 Hep B, Adolescent or 1995-07-03 [facility] 00:00:00 OPV 1995-07-03 [facility] 00:00:00 DTP / HiB 1995-07-03 [facility]pleted [facility] 00:00:00 Hep B, Adolescent or 1995-07-03 [facility] 00:00:00 OPV 1995-07-03 [facility] 00[facility]00:00 DTP / HiB 1995-07-03 [facility]pleted [facility] 00:00:00 DTP / HiB 1995-07-03 [facility]pleted [facility] 00:00:00 Hep B, Adolescent or 1995-07-03 [facility] 00:00:00 OPV 1995-07-03 [facility]pleted [facility] 00:00:00 Hep B, Adolescent or 1995-07-03 [facility] 00:00:00 OPV 1995-07-03 [facility] 00:00:00 DTP / HiB 1995-07-03 [facility]pleted [facility] 00:00:00 Hep B, Adolescent or 1995-07-03 [facility] 00:00:00 OPV 1995-07-03 [facility] 00:00:00 DTP / HiB 1995-07-03 [facility]pleted [facility] 00:00:00 Hep B, Adolescent or 1995-07-03 [facility] 00:00:00 OPV 1995-07-03 [facility] 00:00:00 DTP / HiB 1995-07-03 [facility]pleted [facility] 00:00:00 Hep B, Adolescent or 1995-07-03 [facility] 00:00:00 OPV 1995-07-03 [facility] 00:00:00 MMR 1995-05-13 Completed [facility] 00:00:00 OPV 1995-05-13 [facility]pleted [facility] 00:00:00 DTP / HiB 1995-05-13 [facility]pleted [facility] 00:00:00 MMR 1995-05-13 [facility]pleted [facility] 00:00:00 OPV 1995-05-13 [facility]pleted [facility] 00:00:00 DTP / HiB 1995-05-13 [facility]pleted [facility] 00:00:00 MMR 1995-05-13 [facility]pleted [facility] 00:00:00 OPV 1995-05-13 [facility]pleted [facility] 00:00:00 DTP / HiB 1995-05-13 [facility]pleted [facility] 00:00:00 MMR 1995-05-13 [facility]pleted [facility] 00:00:00 OPV 1995-05-13 [facility]pleted [facility] 00:00:00 DTP / HiB 1995-05-13 [facility]pleted [facility] 00:00:00 MMR 1995-05-13 [facility]pleted [facility] 00:00:00 OPV 1995-05-13 [facility]pleted [facility] 00:00:00 DTP / HiB 1995-05-13 [facility]pleted [facility] 00:00:00 MMR 1995-05-13 Completed [facility] 00:00:00 OPV 1995-05-13 [facility]pleted [facility] 00:00:00 DTP / HiB 1995-05-13 [facility]pleted [facility] 00:00:00 MMR 1995-05-13 [facility]pleted [facility] 00:00:00 OPV 1995-05-13 [facility]pleted [facility] 00:00:00 DTP / HiB 1995-05-13 [facility]pleted [facility] 00:00:00 MMR 1995-05-13 [facility]pleted [facility] 00:00:00 DTP / HiB 1995-05-13 [facility]pleted [facility] 00:00:00 OPV 1995-05-13 [facility]pleted [facility] 00:00:00 DTP / HiB 1995-05-13 [facility]pleted [facility] 00:00:00 MMR 1995-05-13 [facility]pleted [facility] 00:00:00 OPV 1995-05-13 [facility]pleted [facility] 00:00:00 MMR 1995-05-13 [facility]pleted [facility] 00:00:00 OPV 1995-05-13 [facility]pleted [facility] 00:00:00 DTP / HiB 1995-05-13 [facility]pleted [facility] 00:00:00 MMR 1995-05-13 [facility]pleted [facility] 00:00:00 OPV 1995-05-13 [facility]pleted [facility] 00:00:00 DTP / HiB 1995-05-13 [facility]pleted [facility] 00:00:00 MMR 1995-05-13 [facility]pleted [facility] 00:00:00 OPV 1995-05-13 [facility]pleted [facility] 00:00:00 DTP / HiB 1995-05-13 [facility]pleted [facility] 00:00:00 DTP / HiB 1995-05-13 [facility]pleted [facility] 00:00:00 MMR 1995-05-13 [facility]pleted [facility] 00:00:00 OPV 1995-05-13 [facility]pleted [facility] 00:00:00 Vital Signs Vital Name Observation Time Observation Value Comments Source Systolic blood pressure 2021-08-17 15:32:00 111 mm[Hg] [facility] Diastolic blood pressure 2021-08-17 15:32:00 78 mm[Hg] [facility] Heart rate 2021-08-17 15:32:00 85 /min [facility] Body temperature 2021-08-17 15:32:00 36.39 [facility] weight 2021-08-17 15:32:00 103.874 kg [facility] BMI 2021-08-17 15:32:00 36.96 kg/m2 [facility] Systolic blood pressure 2021-07-17 20:32:00 107 mm[Hg] [facility] Diastolic blood pressure 2021-07-17 20:32:00 70 mm[Hg] [facility] Heart rate 2021-07-17 20:32:00 96 /min [facility] Body weight 2021-07-17 20:32:00 102.513 kg [facility] BMI 2021-07-17 20:32:00 36.48 kg/m2 [facility] Systolic blood pressure 2021-06-28 13:37:00 116 mm[Hg] [facility] Diastolic blood pressure 2021-06-28 13:37:00 81 mm[Hg] [facility] Heart rate 2021-06-28 13:37:00 94 /min [facility] Body temperature 2021-06-28 13:37:00 36.39 [facility] weight 2021-06-28 13:37:00 102.655 kg [facility] BMI 2021-06-28 13:37:00 36.53 kg/m2 [facility] Systolic blood pressure 2021-05-31 15:53:00 119 mm[Hg] [facility] Diastolic blood pressure 2021-05-31 15:53:00 81 mm[Hg] [facility] Heart rate 2021-05-31 15:53:00 90 /min [facility] Body temperature 2021-05-31 15:53:00 36.67 [facility] weight 2021-05-31 15:53:00 101.209 kg [facility] BMI 2021-05-31 15:53:00 36.01 kg/m2 [facility] Systolic blood pressure 2021-05-03 15:10:00 112 mm[Hg] [facility] Diastolic blood pressure 2021-05-03 15:10:00 77 mm[Hg] [facility] Heart rate 2021-05-03 15:10:00 88 /min [facility] Body temperature 2021-05-03 15:10:00 36.67 [facility] weight 2021-05-03 15:10:00 102.059 kg [facility] BMI 2021-05-03 15:10:00 36.32 kg/m2 [facility] Systolic blood pressure 2021-04-05 14:57:00 116 mm[Hg] [facility] Diastolic blood pressure 2021-04-05 14:57:00 75 mm[Hg] [facility] Heart rate 2021-04-05 14:57:00 85 /min [facility] Body temperature 2021-04-05 14:57:00 36.61 Phu[facility] weight 2021-04-05 14:57:00 102.967 kg [facility] BMI 2021-04-05 14:57:00 36.64 kg/m2 [facility] Systolic blood pressure 2021-03-02 19:41:00 123 mm[Hg] [facility] Diastolic blood pressure 2021-03-02 19:41:00 82 mm[Hg] [facility] Heart rate 2021-03-02 19:41:00 94 /min [facility] Body temperature 2021-03-02 19:41:00 36.56 [facility] height 2021-03-02 19:41:00 167.6 cm [facility] Body weight 2021-03-02 19:41:00 102.513 kg [facility] BMI 2021-03-02 19:41:00 36.48 kg/m2 [facility] Procedures Procedure Date / Time Performed Performing Clinician Sourc e POCT URINALYSIS DIPSTICK 2021-05-31 16:27:00 Alisha Worley [facility] OB DETAIL ANATOMY 2021-05-29 19:22:29 System, Provider Not In [facility] OB DETAIL ANATOMY 2021-05-29 19:22:29 System, Provider Not In [facility] Plan of Care Planned Activity Planned Date Details Comments Source Future Scheduled 2022-08-25 COVID-[address] [facility] Test 10:49:16 (#1) [code = COVID-19 VACCINE (#1)] Future Scheduled 2022-08-25 [facility] Test 10:49:16 malignant neoplasm of cervix (procedure) [code = 516309625] Future Scheduled 2022-08-25 [facility] 10:49:16 [code = INFLUENZA VACCINE] Future Scheduled [facility] [code = INFLUENZA VACCINE] Future Scheduled COVID-[address] [facility] Test (1) [code = COVID-19 VACCINE (1)] Future Scheduled [facility] screening (procedure) [code = 811886461] Future Scheduled [facility] Test malignant neoplasm of cervix (procedure) [code = 035002898] Encounters Start End Encounter Admission Attending Care Care Encounter Source Date/Time Date/Time Type Type Clinicians Facility Department ID 2021-07-17 Outpatient MOHAMUD, [facility] [id number] [place] 15:06:48 DE[facility] Health 2021-07-16 Outpatient UGHANZE, [facility] [id number] [place] 09:35:47 [facility] 2021-08-17 2021-08-17 Routine UGHANZE, [facility] [id number] [place] 09:15:00 09:30:00 [facility] [id number] H ealth [facility] 1 [id number] [id number] 2021-07-17 2021-07-17 Routine Ughanze, [facility]TP [facility] [id number] [place] 13:57:20 15:06:00 [facility] [id number] H ealth [place] 1 [id number] [id number] 2021-06-28 2021-06-28 Routine UGHANZE, [facility] [id number] [place] 08:32:49 08:47:49 [facility] [place] [id number] Health MULTI 9.2.7.2.686 SPECIALTY [id number] CLINIC 7 2021-05-29 2021-06-27 Outpatient EDGARDO [facility] 9600 14:09:00 23:59:[address] [facility] 2021-06-14 2021-06-14 Telephone Pedro Heard [facility] 6410 1.2. 840.114 [id number] [place] 00:00:00 00:00:00 Pedro Heard [id number]. 58 Health 9.2.7.2.686 [id number] 2021-05-31 2021-05-31 Routine Laurent [facility] 1.2.840.114 [id number] [place] 10:51:24 11:24:56 [facility] SE MED [id number] H ealth [place] 1 [id number] [id number] 2021-05-29 2021-05-29 Office [facility], EXT [facility] 1.2.840.114 [id number] [place] 14:08:15 14:53:15 Visit External LOCATION [id number] Health 9.2.7.2.686 [id number] 2021-05-29 2021-05-29 Office [facility], EXT [facility] 1.2.840.114 [id number] [place] 14:08:15 14:53:15 Visit External LOCATION [id number] Health 9.2.7.2.686 [id number] 2021-05-03 2021-05-03 Routine Laurent, [facility] 1.2.840.114 [id number] [place] 10:04:57 10:30:13 [facility] SE [facility] [id number] H ealth [place] 1 9.2.7.2.686 [id number] 2021-04-05 2021-04-05 Initial Laurent, UTP [facility] [id number] [place] 09:23:37 10:55:36 [facility] [id number] H ealth [place] 1 9.2.7.2.686 [id number] 2021-03-02 2021-03-02 Office FRANCESCA Mancilla [facility] [id number] [place] 14:13:55 15:21:41 Visit [facility] MED [id number] Ted WARD 1 9.2.7.2.686 [id number] Results Test Description Test Time Test Comments Results Result Comments Source POCT urinalysis dipstick manually resulted 2021-05-31 16:27: 00 Test Item Value Reference Range Interpretation Comme nts Color, UA (test code = 1076) Yellow Clarity, UA (test code = Clear 1841477) Glucose, UA (test code = Negative Negative 8299515) Bilirubin, UA (test code = Negative Negative 8149168) Ketones, Urine (test code = 4+ Negative, Trace A 84174-0) Spec Grav, UA (test code = 896496234) Blood, UA (test code = Negative 505381060) pH, UA (test code = 9562082) 5.0-8.5 Protein, UA (test code = Negative Negative, Trace, 7874715) 200(+2)mg/dL, 15/mg/dL Urobilinogen, UA (test code See_Comment A [Automated message] The = 3545547) system which ge nerated this result tra nsmitted reference range : 0.2. The reference r dot was not used to int erpret this result as normal/abnormal . Nitrite, UA (test code = Positive Negative, Trace A 5165155) Leukocytes, UA (test code = Small Negative, Trace A 1744263) Lab Interpretation (test Abnormal code = 52217-3) [facility] urinalysis dipstick manually [id number] 16:27:00 Test Item Value Reference Range Interpretation Comments Color, UA (test code = Yellow 1076) Clarity, UA (test code Clear = 9651639) Glucose, UA (test code Negative Negative = 3706344) Bilirubin, UA (test Negative Negative code = 0859667) Ketones, Urine (test 4+ Negative, Trace A code = 33251-1) Spec Grav, UA (test code = 482582163) Blood, UA (test code = Negative [id number]) pH, UA (test code = 5.0-8.5 6910199) Protein, UA (test code Negative Negative, Trace, = 9697425) 200(+2)mg/dL, 15/mg/dL Urobilinogen, UA (test See_Comment A [Aut omated message] code = 3803031) The system [facility] generated this result transmit marco antonio reference range : 0.2. The refere nce range was not u sed to interpret th is result as normal/abnormal . Nitrite, UA (test code Positive Negative, Trace A = 6216044) Leukocytes, UA (test Small Negative, Trace A code = 4875647) Lab Interpretation Abnormal (test code = 18296-9) [facility]
[2022-08-28 11:16] LABS: SARS-COV-2 RT PCR NEGATIVE (NEGATIVE)
--- NOTE | 2022-08-28 12:48 | EDPHYS ---
Physician Documentation [facility] Name: Radha Pool Age: 26 yrs Sex: Female : 1995 Arrival Date: 08/28/2022 Time: 10:17 Bed 12 Private MD: ED Physician Raj Murrell HPI: 08/28 11:05 This 26 yrs old Black Female presents to ER via Ambulatory with complaints of Sore pm1 Throat, Cough, Congestion, Ear Pain. 11:05 The patient presents with sore throat. The patient describes throat pain as constant, pm1 raw, scratchy. Onset: The symptoms/episode began/occurred 3 day(s) ago. Severity of symptoms: in the emergency department the symptoms are unchanged. Modifying factors: The symptoms are alleviated by nothing, the symptoms are aggravated by swallowing, Patient's oral intake status: good unaware of sick contact. Associated signs and symptoms: Pertinent positives: cough, Bilateral ear pain, nasal congestion. The patient has not experienced similar symptoms in the past. The patient has not recently seen a physician. Historical: - Allergies: 10:25 Amoxicillin; ph - PMHx: 10:25 Asthma; Migraines; ph - PSHx: 10:25 None; ph - Immunization history:: Adult Immunizations unknown. - Social history:: Smoking status: Patient denies any tobacco usage or history of. ROS: 11:05 Eyes: Negative for injury, pain, redness, and discharge. pm1 11:05 Neck: Negative for injury, pain, and swelling, Cardiovascular: Negative for chest pain, palpitations, and edema. 11:05 Abdomen/GI: Negative for abdominal pain, nausea, vomiting, diarrhea, and constipation, Back: Negative for injury and pain, MS/Extremity: Negative for injury and deformity, Skin: Negative for injury, rash, and discoloration, Neuro: Negative for headache, weakness, numbness, tingling, and seizure. 11:05 Constitutional: Positive for body aches, fever, Negative for poor PO intake. 11:05 ENT: Positive for rhinorrhea, sinus congestion, sore throat. 11:05 Respiratory: Positive for cough, Negative for shortness of breath. 11:05 All other systems are negative. Exam: 11:05 Constitutional: This is a well developed, well nourished patient who is awake, alert, pm1 and in no acute distress. Head/Face: Normocephalic, atraumatic. Eyes: Pupils equal round and reactive to light, extra-ocular motions intact. Lids and lashes normal. Conjunctiva and sclera are non-icteric and not injected. Cornea within normal limits. Periorbital areas with no swelling, redness, or edema. 11:05 Back: No spinal tenderness. No costovertebral tenderness. Full range of motion. Skin: Warm, dry with normal turgor. Normal color with no rashes, no lesions, and no evidence of cellulitis. MS/ Extremity: Pulses equal, no cyanosis. Neurovascular intact. Full, normal range of motion. 11:05 ENT: External ear(s): are unremarkable, Ear canal(s): are normal, TM's: are normal, Mouth: no acute changes, Lips: normal, moist, Oral mucosa: normal, pink and intact, moist, Posterior pharynx: Tonsils: bilaterally enlarged, with erythema, no exudate, no ulcerations, peritonsillar mass, is not appreciated. 11:05 Neck: Lymph nodes: lymphadenopathy is appreciated, anterior cervical nodes. 11:05 Cardiovascular: Exam negative for acute changes, Rate: normal, Rhythm: regular, Pulses: no pulse deficits are appreciated, Heart sounds: normal. 11:05 Respiratory: Exam negative for acute changes, respiratory distress, shortness of breath, Breath sounds: are clear throughout. 11:05 Abdomen/GI: Exam negative for acute changes, Inspection: abdomen appears normal, Palpation: abdomen is soft and non-tender, in all quadrants. 11:05 Neuro: Exam negative for acute changes, Orientation: is normal, Mentation: is normal, Motor: is normal, moves all fours. Vital Signs: 10:23 BP 106 / 63; Pulse 100; Resp 18; Temp 99.4(O); Pulse Ox 100% on R/A; Weight 104.33 kg; ph Height 5 ft. 7 in. (170.18 cm); 10:23 Body Mass Index 36.02 (104.33 kg, 170.18 cm) ph MDM: 10:32 Patient medically screened. pm1 12:47 Data reviewed: vital signs. Data interpreted: Pulse oximetry: on room air is 100 %. pm1 Interpretation: normal. Counseling: I had a detailed discussion with the patient and/or guardian regarding: the historical points, exam findings, and any diagnostic results supporting the discharge/admit diagnosis, lab results, the need for outpatient follow up, to return to the emergency department if symptoms worsen or persist or if there are any questions or concerns that arise at home. 08/28 10:25 Order name: COVID-19/FLU A+B; Complete Time: 11:38 ph 08/28 10:25 Order name: Strep; Complete Time: 11:05 ph 08/28 11:03 Order name: Throat Culture EDMS Administered Medications: 13:17 Drug: Decadron (dexamethasone) 10 mg Route: IM; Site: left deltoid; ph 13:24 Follow up: Response: No adverse reaction ph Disposition: 18:06 Co-signature as Attending Physician, Raj Murrell MD I agree with the assessment and rt plan of care. Disposition Summary: 08/28/22 12:47 Discharge Ordered Location: Home pm1 Problem: new pm1 Symptoms: have improved pm1 Condition: Stable pm1 Diagnosis - Acute upper respiratory infection, unspecified pm1 Followup: pm1 - With: Emergency Department - When: As needed - Reason: Worsening of condition Followup: pm1 - With: Private Physician - When: 2 - 3 days - Reason: Recheck today's complaints, Continuance of care, Re-evaluation by your physician Discharge Instructions: - Discharge Summary Sheet pm1 - Upper Respiratory Infection, Adult pm1 Forms: - Medication Reconciliation Form pm1 - Thank You Letter pm1 - Work release form pm1 - Antibiotic Education pm1 - Prescription Opioid Use pm1 Prescriptions: - Bromfed DM 2-30-10 mg/5 mL Oral syrup - take 10 milliliter by ORAL route every 4 hours As needed; 200 milliliter; pm1 Refills: 0, Product Selection Permitted Signatures: Dispatcher [employer] EDDeisi Pittman RN RN ph Gregg Hill, [employer] SALES CONSULTANT [employer] CONSULTANT pm1 Raj Murrell MD MD rt
--- NOTE | 2022-08-28 12:48 | ER ---
Nurse's Notes [facility] Name: Radha Pool Age: 26 yrs Sex: Female : 1995 Arrival Date: 08/28/2022 Time: 10:17 Bed 12 Private MD: Diagnosis: Acute upper respiratory infection, unspecified Presentation: 08/28 10:23 Chief complaint: Patient states: Cough, congestion, sore throat bilateral ear pain and ph fever x 3 days. Coronavirus screen: Vaccine status: Patient reports being unvaccinated. Ebola Screen: No symptoms or risks identified at this time. Initial Sepsis Screen: Does the patient meet any 2 criteria? No. Patient's initial sepsis screen is negative. Does the patient have a suspected source of infection? No. Patient's initial sepsis screen is negative. Risk Assessment: Do you want to hurt yourself or someone else? Patient reports no desire to harm self or others. Onset of symptoms was August 28, 2022. 10:23 Method Of Arrival: Ambulatory ph 10:23 Acuity: GRIS 4 ph Historical: - Allergies: 10:25 Amoxicillin; ph - PMHx: 10:25 Asthma; Migraines; ph - PSHx: 10:25 None; ph - Immunization history:: Adult Immunizations unknown. - Social history:: Smoking status: Patient denies any tobacco usage or history of. Screenin:12 [facility] ED Fall Risk Assessment (Adult) History of falling in the last 3 months, ph including since admission No falls in past 3 months (0 pts) Confusion or Disorientation No (0 pts) Intoxicated or Sedated No (0 pts) Impaired Gait No (0 pts) Mobility Assist Device Used No (0 pt) Altered Elimination No (0 pt) Score/Fall Risk Level 0 - 2 = Low Risk Maintained a safe environment. Abuse screen: Denies threats or abuse. Denies injuries from another. Nutritional screening: No deficits noted. Tuberculosis screening: No symptoms or risk factors identified. Assessment: 12:11 General: Appears in no apparent distress. Behavior is calm, cooperative, appropriate ph for age, Reports chills for fever for > 3 days. Pain: Complains of pain in when swallowing. Neuro: Level of Consciousness is awake, alert, obeys commands, Oriented to person, place, time, situation. Cardiovascular: Capillary refill < 3 seconds in bilateral fingers Patient's skin is warm and dry. Respiratory: Airway is patent Respiratory effort is even, unlabored, Breath sounds are clear bilaterally. Respiratory: Reports shortness of breath. EENT: Throat is reddened has patchy exudate has enlarged tonsils bilaterally Reports nasal congestion nasal discharge. Vital Signs: 10:23 BP 106 / 63; Pulse 100; Resp 18; Temp 99.4(O); Pulse Ox 100% on R/A; Weight 104.33 kg; ph Height 5 ft. 7 in. (170.18 cm); 10:23 Body Mass Index 36.02 (104.33 kg, 170.18 cm) ph ED Course: 10:17 Patient arrived in ED. as 10:24 Triage completed. ph 10:25 Arm band placed on Patient placed in an exam room. ph 10:32 Gregg Hill NP is PHCP. pm1 10:32 Raj Murrell MD is Attending Physician. pm1 11:39 Deisi Hong RN is Primary Nurse. ph 12:13 Patient has correct armband on for positive identification. Bed in low position. Call ph light in reach. Side rails up X 1. 13:24 No provider procedures requiring assistance completed. Patient did not have IV access ph during this emergency room visit. Administered Medications: 13:17 Drug: Decadron (dexamethasone) 10 mg Route: IM; Site: left deltoid; ph 13:24 Follow up: Response: No adverse reaction ph Medication: 12:13 VIS not applicable for this client. ph Outcome: 12:47 Discharge ordered by . pm1 13:24 Discharged to home ambulatory. ph 13:24 Condition: good 13:24 Discharge instructions given to patient, Instructed on discharge instructions, follow up and referral plans. medication usage, Demonstrated understanding of instructions, follow-up care, medications, Prescriptions given X 1. 13:25 Patient left the ED. ph Signatures: Virginia De Los Santos as Deisi Hong, RN RN ph Gregg Hill, [employer] M[employer] PROCESSOR pm1
[2022-08-28] MEDS ORDERED: dexAMETHasone 10 MG/ML VIAL ONE (12:52)
[2022-08-28 13:29] VITALS: BP 106/63; TEMP 99.4; O2SAT 100
== END 2022-08-28 13:25 | disposition home or self-care (01) ==
LOC: ER 10:14
DX: J06.9 Acute upper respiratory infection, unspecified (principal); Z20.822 Contact with and (suspected) exposure to COVID-19; Z88.1 Allergy status to other antibiotic agents
CPT/HCPCS: 0240U; 87070; 87081; J1100

== ENCOUNTER 2024-10-20 08:22 | Emergency (ER) | payer BC, SELFPAY ==
[2024-10-20] MEDS ORDERED: NA CHLORIDE 0.9% 1,000 ML ONE (08:43)
[2024-10-20] MEDS ORDERED: ONDANSETRON 4 MG/2 ML VIAL ONE (08:43)
[2024-10-20] MEDS ORDERED: KETOROLAC 30 MG/ML INJ ONE (08:43)
[2024-10-20 09:11] LABS: Specific Gravity 1.026 (1.005-1.030)
[2024-10-20 09:12] LABS: Absolute Lymphocytes (CBC) 0.8 K/uL (0.7-4.9); Absolute Monocytes 0.3 K/uL (0.1-1.3); Absolute Neutrophil 6.1 K/uL (1.8-8.0); Basophils % 0.5 % (0-1.3); Eosinophils % 0.1 % (0-4.4); Hemoglobin 12.5 g/dL (12.0-15.0); Lymphocytes % 10.9 % (15.3-44.8); MCH 31.8 pg (27.0-35.0); MCHC 33.8 g/dL (32.0-36.0); MCV 94.3 fL (80-100); Monocytes % 4.5 % (3.3-12.3); Nucleated Red Blood Cells % 0.1 % (0-0); Platelets 296 thou/uL (152-406); RBC Red Blood Cell Count 3.93 M/uL (3.86-4.86); Red Cell Distribution Width 12.4 % (12.1-15.2)
[2024-10-20 09:15] LABS: Specific Gravity 1.026 (1.005-1.030); Sqamous Epithelial <5 /HPF (None Seen); Urine Bacteria None Seen /HPF (<20); Urine Bilirubin NEGATIVE (Negative); Urine Blood Negative (Negative); Urine Clarity Extremely Turbid (Clear); Urine Color Light-Yellow (Yellow); Urine Culture Reflex Order NOT NEEDED; Urine Glucose NEGATIVE (Negative); Urine Ketones NEGATIVE (Negative); Urine Microscopic Reflex YN ORDER UMIC; Urine Mucus 1+ /HPF (None Seen); Urine Nitrite NEGATIVE (Negative); Urine Protein TRACE (Negative); Urine Urobilinogen Normal (Normal); Urine WBC <5 /HPF (<5)
[2024-10-20 09:29] LABS: ALT/SGPT 26 U/L (13-56); AST/SGOT 12 U/L (15-37); Albumin 3.4 g/dL (3.4-5.0); Albumin/Globulin Ratio 0.8 (1.1-1.8); Alkaline Phosphatase 70 U/L (45-117); Anion Gap 6.6 mEq/L (5.0-15.0); BUN Blood Urea Nitrogen 11 mg/dL (7-18); Bicarbonate 26 mEq/L (21-32); Bilirubin Total 0.3 mg/dL (0.2-1.0); Globulin 4.3 g/dL (2.3-3.5); Glomerular Filtration Rate 125 ml/min (=/>90); Glucose Level 121 mg/dL (74-106); Lipase 17 U/L (13-75); Potassium 3.6 mEq/L (3.5-5.1); Protein, Total 7.7 g/dL (6.4-8.2); Sodium Level 137 mEq/L (136-145)
[2024-10-20 09:38] LABS: Bilirubin Direct < 0.2 mg/dL (0-0.2); Bilirubin Indirect, Calculated 0.1 mg/dL (0.2-0.8)
--- NOTE | 2024-10-20 10:42 | ER ---
Nurse's Notes [facility] Name: Radha Pool Age: 29 yrs Sex: Female : 1995 Arrival Date: 10/20/2024 Time: 08:22 Bed 6 Private MD: Diagnosis: Migraine, unspecified, not intractable, without status migrainosus Presentation: 10/20 08:36 Chief complaint: Patient states: headache, n/v/d, since yesterday. Coronavirus screen: iw At this time, the client does not indicate any symptoms associated with coronavirus-19. Ebola Screen: No symptoms or risks identified at this time. Initial Sepsis Screen: Does the patient meet any 2 criteria? No. Patient's initial sepsis screen is negative. Does the patient have a suspected source of infection? No. Patient's initial sepsis screen is negative. Risk Assessment: Do you want to hurt yourself or someone else? Patient reports no desire to harm self or others. Onset of symptoms was October 19, 2024. 08:36 Method Of Arrival: Ambulatory iw 08:36 Acuity: GRIS 3 iw Triage Assessment: 08:40 Headache History: The patient has had previous headaches and this one is similar to ld1 previous episodes. General: Appears in no apparent distress. uncomfortable, Behavior is cooperative, anxious. Pain: Complains of pain in face Pain does not radiate. Pain currently is 8 out of 10 on a pain scale. Quality of pain is described as throbbing, Pain began suddenly, Is continuous. Pain: Also complains of nausea. EENT: No signs and/or symptoms were reported regarding the EENT system. Neuro: Level of Consciousness is awake, alert, obeys commands, Oriented to person, place, time, situation, Appropriate for age. Cardiovascular: Capillary refill < 3 seconds Patient's skin is warm and dry. Respiratory: Airway is patent Respiratory effort is even, unlabored. GI: Abdomen is round non-distended. : No signs and/or symptoms were reported regarding the genitourinary system. Derm: No signs and/or symptoms reported regarding the dermatologic system. Musculoskeletal: No signs and/or symptoms reported regarding the musculoskeletal system. Historical: - Allergies: 08:39 Amoxicillin; ld1 - Home Meds: 08:39 None [Active]; ld1 - PMHx: 08:39 Asthma; Migraines; ld1 - PSHx: 08:39 None; ld1 - Immunization history:: Adult Immunizations up to date. - Infectious Disease History:: Denies. - Social history:: Smoking status: Patient denies any tobacco usage or history of. - Family history:: not pertinent. - Hospitalizations: : No recent hospitalization is reported. Screenin:41 [facility] ED Fall Risk Assessment (Adult) History of falling in the last 3 months, ld1 including since admission No falls in past 3 months (0 pts) Confusion or Disorientation No (0 pts) Intoxicated or Sedated No (0 pts) Impaired Gait No (0 pts) Mobility Assist Device Used No (0 pt) Altered Elimination No (0 pt) Score/Fall Risk Level 0 - 2 = Low Risk Oriented to surroundings, Hourly rounding (assess needs \T\ fall precautionary measures) done. Abuse screen: Denies threats or abuse. Denies injuries from another. Nutritional screening: No deficits noted. Tuberculosis screening: No symptoms or risk factors identified. Assessment: 08:41 Reassessment: See triage assessment. Pain: Complains of pain in face. ld1 10:45 Reassessment: Pt reports headache unchanged, rated 10/10, ERD notified, see MAR for jl7 orders. Vital Signs: 08:36 BP 137 / 83; Pulse 92; Resp 16; Pulse Ox 99% on R/A; iw 10:45 BP 114 / 76; Pulse 75; Resp 15; Temp 97.9; Pulse Ox 100% ; Pain 10/10; jl7 10:45 Pain Scale: Adult jl7 Prescott Coma Score: 10:38 Eye Response: spontaneous(4). Motor Response: obeys commands(6). Verbal Response: rn oriented(5). Total: 15. ED Course: 08:25 Patient arrived in ED. im 08:25 Wyatt Oneil MD is Attending Physician. rn 08:37 Triage completed. iw 08:39 Ignacia Laird RN is Primary Nurse. ld1 08:40 Arm band placed on right wrist. ld1 08:41 Patient has correct armband on for positive identification. Placed in gown. Bed in low ld1 position. Call light in reach. Side rails up X2. grades 9 12 tutor on. Pulse ox on. NIBP on. Door closed. Noise minimized. Warm blanket given. 08:41 No provider procedures requiring assistance completed. ld1 09:00 Test, Urine Sent. ld1 09:00 Urinalysis w/ reflexes Sent. ld1 09:00 Inserted saline lock: 20 gauge in right antecubital area, using aseptic technique. ld1 Blood collected. Flushed with 10 mL NS. 10:45 Provided Education on: use of call jimenez. jl7 11:04 IV discontinued, intact, bleeding controlled, No redness/swelling at site. Pressure jl7 dressing applied. Administered Medications: 09:00 Drug: NS 0.9% IV 1000 ml IV at 1000 ml once; to be given as a bolus over 60 minutes ld1 Route: IV; Rate: 1000 ml; Site: right antecubital; 11:01 Follow up: Response: No adverse reaction; IV Status: Completed infusion; IV Intake: jl7 700ml 09:00 Drug: Ondansetron IVP 4 mg IVP once; over 2 minutes Route: IVP; Site: right antecubital;ld1 11:01 Follow up: Response: No adverse reaction; Nausea is decreased jl7 09:00 Drug: Ketorolac IVP 30 mg IVP once Route: IVP; Site: right antecubital; ld1 10:45 Follow up: Response: No adverse reaction; Pain is unchanged, physician notified; RASS: jl7 Alert and Calm (0) 11:00 Drug: Acetaminophen PO 1000 mg PO once Route: PO; jl7 11:00 Follow up: Response: Medication administered at discharge.; RASS: Alert and Calm (0) jl7 Medication: 08:41 VIS not applicable for this client. ld1 Intake: 11: IV: 700ml; Total: 700ml. jl7 Outcome: :41 Discharge ordered by MD. ramirez 11:04 Discharged to home ambulatory, jl7 11:04 Condition: stable 11:04 Discharge instructions given to patient, Instructed on discharge instructions, follow up and referral plans. Demonstrated understanding of instructions, follow-up care, 11:04 Patient left the ED. jl7 Signatures: Jyoti Vaz RN Wyatt Paris MD MD rn Leal, Jahala, RN RN jl7 Ignacia Laird RN RN ld1 Any Bernstein Corrections: (The following items were deleted from the chart) 11:04 10:45 Provided Education on: use if call barbara. jl7 jl7
--- NOTE | 2024-10-20 10:42 | EDPHYS ---
Physician Documentation [facility] Name: Radha Pool Age: 29 yrs Sex: Female : 1995 Arrival Date: 10/20/2024 Time: 08:22 Bed 6 Private MD: ED Physician Wyatt Oneil HPI: 10/20 09:31 This 29 yrs old Black Female presents to ER via Ambulatory with complaints of Headache, rn High Blood Pressure, Low Blood Sugar, Vomiting. 09:31 The patient complains of pain to the forehead. The patient describes the headache as rn aching. Onset: The symptoms/episode began/occurred yesterday. Severity of symptoms: At its worst the pain was moderate, "similar to past headaches", in the emergency department the pain is unchanged. The symptoms are alleviated by nothing. the symptoms are aggravated by lights, noise. The patient has experienced similar episodes in the past. Patient reports 1 day of headache, migraine, has history of migraines and feels similar to previous migraines. Also reports myalgias, nausea and vomiting with diarrhea. No fever or chills. No head injury. Patient reports headache is making her nauseous. Reports sensitivity to light and sound. Has been evaluated multiple times per patient for migraines without brain mass or acute abnormalities in imaging. Denies . No cough.. Historical: - Allergies: 08:39 Amoxicillin; ld1 - Home Meds: 08:39 None [Active]; ld1 - PMHx: 08:39 Asthma; Migraines; ld1 - PSHx: 08:39 None; ld1 - Immunization history:: Adult Immunizations up to date. - Infectious Disease History:: Denies. - Social history:: Smoking status: Patient denies any tobacco usage or history of. - Family history:: not pertinent. - Hospitalizations: : No recent hospitalization is reported. ROS: 09:31 Constitutional: Negative for fever, chills, and weight loss, Eyes: Negative for injury, rn pain, redness, and discharge, Neck: Negative for injury, pain, and swelling, Cardiovascular: Negative for chest pain, palpitations, and edema, Respiratory: Negative for shortness of breath, cough, wheezing, and pleuritic chest pain, Abdomen/GI: Negative for abdominal pain, positive for nausea and vomiting and diarrhea MS/Extremity: Negative for injury and deformity, Skin: Negative for injury, rash, and discoloration, Neuro: Positive for headache and generalized weakness, negative for seizure Exam: 10:38 Constitutional: This is a well developed, well nourished patient who is awake, alert, rn and in no acute distress. Lights off in room, covering eyes Head/Face: Normocephalic, atraumatic. Eyes: Pupils equal round and reactive to light, extra-ocular motions intact. Neck: No Meningismus. Cardiovascular: Regular rate and rhythm. No pulse deficits. Respiratory: No increased work of breathing, no retractions or nasal flaring. Abdomen/GI: Soft, non-tender MS/ Extremity: Pulses equal, no cyanosis. Neurovascular intact. Full, normal range of motion. Equal circumference. Neuro: Awake and alert, GCS 15, oriented to person, place, time, and situation. Motor strength 5/5 in all extremities. Sensory grossly intact. Vital Signs: 08:36 BP 137 / 83; Pulse 92; Resp 16; Pulse Ox 99% on R/A; iw 10:45 BP 114 / 76; Pulse 75; Resp 15; Temp 97.9; Pulse Ox 100% ; Pain 10/10; jl7 10:45 Pain Scale: Adult jl7 Gretta Coma Score: 10:38 Eye Response: spontaneous(4). Motor Response: obeys commands(6). Verbal Response: rn oriented(5). Total: 15. MDM: 08:25 Medical Screening Exam initiated rn 10:38 Differential diagnosis: cluster headache, hypertensive headache, migraine, tension rn headache, vasomotor headache. Data reviewed: vital signs, nurses notes, lab test result(s), and as a result, I will discharge patient. Counseling: I had a detailed discussion with the patient and/or guardian regarding the historical points, exam findings, and any diagnostic results supporting the discharge/admit diagnosis, lab results, the need for outpatient follow up, to return to the emergency department if symptoms worsen or persist or if there are any questions or concerns that arise at home. Response to treatment: the patient's symptoms have markedly improved after treatment, and as a result, I will discharge patient. Special discussion: I discussed with the patient/guardian in detail that at this point there is no indication for admission to the hospital. It is understood, however, that if the symptoms persist or worsen the patient needs to return immediately for re-evaluation. ED course: Patient markedly improved, sleeping comfortably, notified of all results without acute findings. Will discharge home as migraine with return precautions given and understood. Patient declines as needed Zofran prescription or any other medication, she states that she would not take them.. 10/20 08:39 Order name: CBC with Diff; Complete Time: 10:13 rn 10/20 08:39 Order name: Basic Metabolic Panel; Complete Time: 10: rn 10/20 08:39 Order name: Test, Urine; Complete Time: : rn 10/20 08:39 Order name: Urinalysis w/ reflexes; Complete Time: : rn 10/20 08:39 Order name: LFT's; Complete Time: : rn 10/20 08:40 Order name: Lipase; Complete Time: : rn 10/20 08:39 Order name: IV Start; Complete Time: 09:00 rn Administered Medications: 09:00 Drug: NS 0.9% IV 1000 ml IV at 1000 ml once; to be given as a bolus over 60 minutes ld1 Route: IV; Rate: 1000 ml; Site: right antecubital; 11:01 Follow up: Response: No adverse reaction; IV Status: Completed infusion; IV Intake: jl7 700ml 09:00 Drug: Ondansetron IVP 4 mg IVP once; over 2 minutes Route: IVP; Site: right antecubital;ld1 11:01 Follow up: Response: No adverse reaction; Nausea is decreased jl7 09:00 Drug: Ketorolac IVP 30 mg IVP once Route: IVP; Site: right antecubital; ld1 10:45 Follow up: Response: No adverse reaction; Pain is unchanged, physician notified; RASS: jl7 Alert and Calm (0) 11:00 Drug: Acetaminophen PO 1000 mg PO once Route: PO; jl7 11:00 Follow up: Response: Medication administered at discharge.; RASS: Alert and Calm (0) jl7 Disposition Summary: 10/20/24 10:41 Discharge Ordered Notes: Location: Home rn Problem: new rn Symptoms: have improved rn Condition: Stable rn Diagnosis - Migraine, unspecified, not intractable, without status migrainosus rn Followup: rn - With: Private Physician - When: As needed - Reason: Recheck today's complaints, Re-evaluation by your physician Discharge Instructions: - Discharge Summary Sheet rn - Migraine Headache rn Forms: - Medication Reconciliation Form rn - Antibiotic popped corn oven attendant - Prescription Opioid Use rn - Patient Portal Instructions rn - Leadership Thank You Letter rn Signatures: Dispatcher [employer] Wyatt Barajas MD MD rn Leal, Jahala, RN RN jl7 Ignacia Laird RN RN ld1
[2024-10-20] MEDS ORDERED: ACETAMINOPHEN 500 MG TAB ONE (10:51)
[2024-10-20 13:44] VITALS: BP 114/76; TEMP 97.9; O2SAT 100
== END 2024-10-20 11:04 | disposition home or self-care (01) ==
LOC: ER 08:22
DX: G43.909 Migraine, unspecified, not intractable, without status migrainosus (principal); R53.1 Weakness
CPT/HCPCS: 85025; 81001; 80048; 36415; 81025; 80076; 83690; J2405; J7030